=== PATIENT | male | born 1955 | race Caucasian/White ===

== ENCOUNTER → 2022-05-06 | Outpatient (CLI) | payer OTHER ==
[2022-05-06 13:45] LABS: Creatinine, Urine Random 75.7 mg/dL (27.00-270.00); Microalb/Creat Ratio UR, Rand 7.054 mg/g (0.000-30.000); Microalbumin, Random Urine 5.34 mg/L (0.000-20.000)
== END | disposition home or self-care (01) ==
LOC: LAB 10:41 → LAB SHORT 10:41
PROVIDERS: Internal Medicine Endocrinology, Diabetes & Metabolism
DX: E11.65 Type 2 diabetes mellitus with hyperglycemia (principal)
CPT/HCPCS: 82043; 82570

== ENCOUNTER → 2022-09-19 | Outpatient (CLI) | payer OTHER | END | disposition home or self-care (01) | LOC: LAB SHORT 12:02 | DX: R10.11 Right upper quadrant pain (principal) | CPT/HCPCS: 87086 ==

== ENCOUNTER 2023-01-02 08:41 | Day surgery (SDC) | payer OTHER ==
[~2023-01-02] VITALS: Ht 177.8 cm; Wt 161.8 kg
[~2023-01-02 08:41] MED LIST: ALBU90OI INH; ASPI81CH PO; BASAGLAR K100 UNIT/1 SC; BUDESONIDE-FO10.2 G2 INH; Crestor20 MG PO; METF500 PO; OZEMPIC0.25 MG/0. SQ; PIOG15 PO; SPIR25 PO; TAMS.4ER PO; TORSE20 PO; TRAZ100 PO
[2023-01-02] MEDS ORDERED: GABA300 PO (09:00)
[2023-01-02 09:14] VITALS: BP 148/75
--- NOTE | 2023-01-02 09:18 | NUR ---
Ambulatory in Day Surgery History, Chart, Medications and Allergies reviewed before start of procedure.Lungs clear T/O to Auscultation. Patient confirms NPO status and agrees with scheduled surgery. Patient states colon prep results clear. Patient States Post-Procedure ride home has been arranged.
--- NOTE | 2023-01-02 10:28 | NUR ---
01/02/23 1028 Nabor Solis MONITOR INTACT WITH CONTINUOUS PULSE OXIMETRY, CONTINUOUS END TITAL CO2, AND INTERMITTENT BLOOD PRESSURE. AND EKG ANESTHESIA PER DR. CHEN
[2023-01-02 11:16] VITALS: BP 104/54
--- NOTE | 2023-01-02 11:17 | NUR ---
REPORT RECIEVED. PT SITTING UP IN BED TOLERING PO FLUIDS. VSS ON ROOM AIR. TALKATIVE AND PLESANT
[2023-01-02 11:27] VITALS: BP 108/74
--- NOTE | 2023-01-02 11:30 | NUR ---
Patient up to Ambulate independently. Gait steady. Discharge instructions reviewed with patient. Patient verbalizes understanding. Copy given to patient to take home. Discharged via wheelchair to private car for ride home.
== END 2023-01-02 11:33 | disposition home or self-care (01) ==
LOC: ORSCMMR 08:41 → ORD 10:15 → ORSCMMR 10:15
PROVIDERS: Internal Medicine Gastroenterology
PROC: 0DJD8ZZ Inspection of Lower Intestinal Tract, Via Natural or Artificial Opening Endoscopic (ICD-10-PCS; principal; 2023-01-02 10:15)
DX: Z12.11 Encounter for screening for malignant neoplasm of colon (principal); G47.33 Obstructive sleep apnea (adult) (pediatric); I10 Essential (primary) hypertension; E78.5 Hyperlipidemia, unspecified; J44.9 Chronic obstructive pulmonary disease, unspecified; Z87.891 Personal history of nicotine dependence; E11.9 Type 2 diabetes mellitus without complications; E66.01 Morbid (severe) obesity due to excess calories; Z68.43 Body mass index [BMI] 50.0-59.9, adult; E78.00 Pure hypercholesterolemia, unspecified; Z79.4 Long term (current) use of insulin; Z79.899 Other long term (current) drug therapy; Z79.82 Long term (current) use of aspirin; Z85.46 Personal history of malignant neoplasm of prostate
CPT/HCPCS: 82947; J2704; J7120